=== PATIENT | male | born 1995 | race Caucasian/White ===

== ENCOUNTER 2022-05-28 04:07 | Outpatient (CLI) | payer BC, SELFPAY ==
[2022-06-08 03:05] LABS: Result Summary NEGATIVE; Specimen WB Whole Blood
== END 2022-05-28 04:08 | disposition home or self-care (01) ==
LOC: LBO 04:07
PROVIDERS: PCP Family Medicine; Visit Provider Advanced Practice Midwife
DX: Z13.228 Encounter for screening for other metabolic disorders (principal); Z31.440 Encounter of male for testing for genetic disease carrier status for procreative management
CPT/HCPCS: 36415; 81220